=== PATIENT | female | born 1960 | race Caucasian/White ===

== ENCOUNTER 2016-06-27 07:56 | Day surgery (SDC) | payer OTHER ==
[2016-06-27] MEDS ORDERED: LACTATED RINGERS 1,000 ML ONE ×2 (08:43→11:00)
[2016-06-27] MEDS ORDERED: IV START KIT ONE (08:43)
[2016-06-27] MEDS ORDERED: PROPOFOL 40 ML IV ONE (09:52)
[2016-06-27] MEDS ORDERED: LIDOCAINE 2% (PRES FREE) 5 ML VIAL ONE (09:52)
[2016-06-27] MEDS ORDERED: PROPOFOL 20 ML IV ONE ×3 (11:05→11:35)
--- NOTE | 2016-07-01 09:40 | SURGPATH ---
[facility] [address] [place] [id number] Patient Name: LIZBET MARTINEZ MR#: [id number] : 1960 Gender: F Specimen #: [id number] Collected: 06/27/2016 Received: 06/28/2016 Reported: 07/01/2016 Submitting Phys: DANIEL CLINE Copy To Phys: [facility] Clinical History / Pre-Operative Diagnosis: COLONOSCOPY SCREENING Specimen Source / Surgical Procedure Performed: SIGMOID BIOPSY AT 20 CM Interpretation: SIGMOID BIOPSY AT 20 CM: - NO PATHOLOGIC ABNORMALITY Electronically Signed Out Cl Erickson M.D. Gross Description: The specimen is received in a formalin filled container labeled with the patient's name and "sigmoid biopsy at 20 cm". A single phelps biopsy is 0.4 cm. Totally embedded in one cassette. Vladimir Mcclelland Microscopic Description: The sections show fragments of colonic mucosa exhibiting a normal architectural pattern. There are no inflammatory or neoplastic features and the basement membrane is of normal caliber. 1: 82177 K63.89
== END 2016-06-27 12:15 | disposition home or self-care (01) ==
LOC: SDC 07:56
PROVIDERS: ATTEND Family Medicine
PROC: 0DBE8ZX Excision of Large Intestine, Via Natural or Artificial Opening Endoscopic, Diagnostic (ICD-10-PCS; principal; 2016-06-27)
DX: Z12.11 Encounter for screening for malignant neoplasm of colon (principal); D12.6 Benign neoplasm of colon, unspecified; K57.30 Diverticulosis of large intestine without perforation or abscess without bleeding; K64.1 Second degree hemorrhoids; I35.8 Other nonrheumatic aortic valve disorders; E66.9 Obesity, unspecified; F17.210 Nicotine dependence, cigarettes, uncomplicated; M25.571 Pain in right ankle and joints of right foot; Z88.5 Allergy status to narcotic agent; Z68.34 Body mass index [BMI] 34.0-34.9, adult
CPT/HCPCS: 45385; J7120 ×2